=== PATIENT | male | born 1955 | race Caucasian/White ===

== ENCOUNTER → 2018-07-20 12:51 | Outpatient (POV) | payer OTHER, SELFPAY ==
[2018-07-20 12:57] VITALS: BP 163/98; PULSE 79; RESP 18
--- NOTE | 2018-07-20 13:18 | [facility]H.PMCON ---
Assessment and Plan (1) Sacroiliitis Current visit: Yes Status: Acute Category: Medical Code(s): M46.1 - Sacroiliitis, not elsewhere classified - Assessment and plan all Dx Assessment and Plan for all problems:: We will start the patient on prednisone 40 mg 1 p.o. for 5 days. We will also call in Flexeril 10 mg 1 p.o. twice daily as needed. Patient is going to call us if he is still having worsening symptoms. Dr. Jimenez has reviewed this note and agrees with this plan of care. This note was dictated using voice recognition software and may contain errors or omissions HPI - Data of Consult Consult date: 07/20/18 Requesting Physician: Kathy Vernon APRN Primary Care Provider: Referral Provider, MD - Consult Narrative Reason for consult: Low back pain History of present illness: Mr. Husain is a 62 year old male who presents today for consultation in regards to his low back pain. Patient has been visiting from [place] when he was helping to change a light bulb he strained his lower back. Patient has extreme point tenderness over his right SI joint. Patient states sitting makes it worse. He rates his pain a 9 out of 10. CC: Kathy Vernon APRN [facility] History I have reviewed the patient's past medical history: Yes Medical History: Denies:: Diabetes Mellitus Type 1, Diabetes Mellitus Type 2 - *Social History Smoking Status: Never smoker Alcohol Intake: never *Occupational Status:: other *Travel in the last 8 weeks: None - Psychiatric History Expresses thoughts of harming self/others: None Suicide Plan Description: No Plan Family Hx:: Unable to obtain Review of Systems - Review of Systems ROS General: no recent weight change, no fever, no sleep disturbances Respiratory: no cough, no shortness of air, no recurring pulmonary infections Cardiovascular/Peripheral Vascular: No chest pain, No palpitations, no edema, no shortness of breath. Gastrointestinal: no incontinence, normal bowel movements reported Genitourinary: no incontinence Musculoskeletal: SI joint pain Psychiatric: normal mood/ affect Neurological: [denies weakness in extremities], [denies balance issues] Objective Vital signs: Pulse Resp BP 79 18 163/98 H 07/20/18 12:57 07/20/18 12:57 07/20/18 12:57 Narrative: Physical Exam General: Alert and oriented x3, no acute distress, pleasant and cooperative, [on room air] Lungs: Resps E/U, Symmetrical chest expansion, Eyes: PERRL Musculoskeletal: Flexion and extension of lumbar spine somewhat guarded secondary to pain, deep tendon reflexes normal, strength in upper and lower extremities [5/5], [abnormal gait noted] positive Keanu's test, positive thigh thrust test positive SI joint compression test and positive [place]'s test bilaterally. 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
--- NOTE | 2018-07-20 13:22 | P.CONS_ITS ---
Assessment and Plan (1) Sacroiliitis Current visit: Yes Status: Acute Category: Medical Code(s): M46.1 - Sacroiliitis, not elsewhere classified - Assessment and plan all Dx Assessment and Plan for all problems:: We will start the patient on prednisone 40 mg 1 p.o. for 5 days. We will also call in Flexeril 10 mg 1 p.o. twice daily as needed. Patient is going to call us if he is still having worsening symptoms. Dr. Jimenez has reviewed this note and agrees with this plan of care. This note was dictated using voice recognition software and may contain errors or omissions HPI - Data of Consult Consult date: 07/20/18 Requesting Physician: Kathy Vernon APRN Primary Care Provider: Referral Provider, MD - Consult Narrative Reason for consult: Low back pain History of present illness: Mr. Husain is a 62 year old male who presents today for consultation in regards to his low back pain. Patient has been visiting from [place] when he was helping to change a light bulb he strained his lower back. Patient has extreme point tenderness over his right SI joint. Patient states sitting makes it worse. He rates his pain a 9 out of 10. CC: Kathy Vernon APRN [facility] History I have reviewed the patient's past medical history: Yes Medical History: Denies:: Diabetes Mellitus Type 1, Diabetes Mellitus Type 2 - *Social History Smoking Status: Never smoker Alcohol Intake: never *Occupational Status:: other *Travel in the last 8 weeks: None - Psychiatric History Expresses thoughts of harming self/others: None Suicide Plan Description: No Plan Family Hx:: Unable to obtain Review of Systems - Review of Systems ROS General: no recent weight change, no fever, no sleep disturbances Respiratory: no cough, no shortness of air, no recurring pulmonary infections Cardiovascular/Peripheral Vascular: No chest pain, No palpitations, no edema, no shortness of breath. Gastrointestinal: no incontinence, normal bowel movements reported Genitourinary: no incontinence Musculoskeletal: SI joint pain Psychiatric: normal mood/ affect Neurological: [denies weakness in extremities], [denies balance issues] Objective Vital signs: Pulse Resp BP 79 18 163/98 H 07/20/18 12:57 07/20/18 12:57 07/20/18 12:57 Narrative: Physical Exam General: Alert and oriented x3, no acute distress, pleasant and cooperative, [on room air] Lungs: Resps E/U, Symmetrical chest expansion, Eyes: PERRL Musculoskeletal: Flexion and extension of lumbar spine somewhat guarded secondary to pain, deep tendon reflexes normal, strength in upper and lower extremities [5/5], [abnormal gait noted] positive Keanu's test, positive thigh thrust test positive SI joint compression test and positive [place]'s test bilaterally. 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
== END ==
PROVIDERS: Visit Provider Clinical Nurse Specialist Family Health
DX: M46.1 Sacroiliitis, not elsewhere classified (principal)
CPT/HCPCS: 99202